=== PATIENT | female | born 1970 | race Caucasian/White ===

== ENCOUNTER 2025-02-19 13:28 | Inpatient (IN) | payer MEDICARE, OTHER ==
[2025-02-19] VITALS (10 sets, daily range): BP systolic 99–115; BP diastolic 37–53; TEMP 99.3; O2SAT 97–100
[~2025-02-19] VITALS: Ht 170.2 cm; Wt 97.1 kg
[2025-02-19] MEDS ORDERED: IOHEXOL-350 100 ML VIAL IV ONE (13:48)
[2025-02-19] MEDS ORDERED: IV NS 0.9% 250 ML IV ONE (13:48)
[2025-02-19 14:14] LABS: ABG BASE EXCESS 2.6 mmol/L (-2.0-3.0); ABG PH 7.283 (7.350-7.450); ABG PO2 76.5 mmHg (83.0-108.0); ABG TOTAL HEMOGLOBIN 12.6 G/dL (12.0-16.0); COHb 0.1 % (0.5-1.5); MetHb 0.3 % (0.0-1.5); O2Hb 92.6 % (94.0-97.0); SITE, ABG RIGHT RADIAL
[2025-02-19 14:15] LABS: BASOPHILS % (AUTO) 0.2 % (0.0-2.0); HEMATOCRIT 42 % (33-45); HEMOGLOBIN 13.2 g/dL (11.5-14.8); LYMPHOCYTES # (AUTO) 1.2 K/uL (0.8-4.8); LYMPHOCYTES % (AUTO) 8.8 % (20.0-44.0); MEAN CORPUSCULAR HEMOGLOBIN 23 PG (26.0-33.0); MEAN CORPUSCULAR HGB CONC 31 g/dl (31.0-36.0); MEAN CORPUSCULAR VOLUME 72 fL (82-100); MONOCYTES # (AUTO) 1.8 K/uL (0.1-1.30); MONOCYTES % (AUTO) 12.6 % (2.0-12.0); NEUTROPHILS # (AUTO) 10.9 K/uL (1.8-8.9); NEUTROPHILS % (AUTO) 78.4 % (43.0-81.0); PLATELET COUNT (AUTO) 233 K/uL (150-450); RED BLOOD CELL COUNT(AUTO) 5.85 MIL/uL (4.0-5.2); RED CELL DISTRIBUTION WIDTH 16.6 % (11.5-15.0); WHITE BLOOD COUNT (AUTO) 13.9 K/uL (4.3-11.0)
[2025-02-19 14:16] LABS: CALCIUM, SERUM 9.3 mg/dL (8.5-10.1); CARBON DIOXIDE 30 mmol/L (21-32); CHLORIDE 103 mmol/L (98-107); CREATININE 0.7 mg/dL (0.6-1.3); GLUCOSE 124 mg/dL (74-106); POTASSIUM 3.8 mmol/L (3.5-5.1); SODIUM SERUM 139 mmol/L (136-145); UREA NITROGEN, BLOOD 7 mg/dL (7-18)
[2025-02-19 14:21] LABS: ALANINE AMINOTRANSFERASE 7 U/L (12-78); ALBUMIN 3.1 g/dL (3.4-5.0); ALKALINE PHOSPHATASE 105 U/L (46-116); ASPARTATE AMINOTRANSFERASE 12 U/L (15-37); BILIRUBIN,DIRECT 0.1 mg/dL (0.0-0.2); BILIRUBIN,TOTAL 0.3 mg/dL (0.2-1.0)
[2025-02-19 14:28] LABS: INR 1.02 (0.91-1.10); PARTIAL THROMBOPLASTIN TIME 29.1 SEC (24.3-34.3); PROTHROMBIN TIME 10.8 SECS (9.2-11.1)
[2025-02-19] MEDS: PIPERACILLIN /TAZOBACTAM 3.375 G in IV D5W 50 ML IV ONE (14:30)
[2025-02-19] MEDS ORDERED: DIVA500T54 PO (15:26)
[2025-02-19] MEDS ORDERED: METF-440 PO (15:26)
[2025-02-19] MEDS ORDERED: CLOZ100T32 PO (15:26)
[2025-02-19] MEDS ORDERED: CLOZ25TA PO (15:26)
[2025-02-19] MEDS ORDERED: IBUP-1957 PO (15:26)
[2025-02-19] MEDS ORDERED: PANT40TA49 PO (15:26)
[2025-02-19] MEDS ORDERED: HALO5TAB8 PO (15:26)
[2025-02-19] MEDS ORDERED: BENZ0.5T43 PO (15:26)
[2025-02-19] MEDS ORDERED: SIMV-46 PO (15:26)
[2025-02-19] MEDS ORDERED: ONDANSETRON HCL/PF 4 MG/2 ML VIAL IVP PRN (15:30)
[2025-02-19] MEDS ORDERED: ACETAMINOPHEN 325 MG TABLET PO PRN (15:30)
[2025-02-19] MEDS ORDERED: PROPOFOL 100 ML ONE (15:43)
[2025-02-19] MEDS ORDERED: FENTANYL CITRAT IV 2,500 MCG in IV NS 0.9% 200 ML IV PRN (16:00)
[2025-02-19] MEDS: [UNRECOGNIZED DRUG - OTHER] IV ONE (16:00)
[2025-02-19] MEDS: [UNRECOGNIZED DRUG - OTHER] IV ONE (16:00)
[2025-02-19] MEDS: PROPOFOL 100 ML IV PRN ×2 (16:45→18:59)
[2025-02-19 17:04] LABS: APPEARANCE,URINE CLEAR (CLEAR); BILIRUBIN,URINE NEGATIVE (NEGATIVE); BLOOD, URINE NEGATIVE Ery/uL (NEGATIVE); COLOR,URINE YELLOW (YELLOW); KETONES,URINE NEGATIVE (NEGATIVE); LEUKOCYTE ESTERASE ,URINE NEGATIVE (NEGATIVE); NITRITE, URINE NEGATIVE (NEGATIVE); PH,URINE 6.5 (5.0-8.0); PROTEIN,URINE TRACE mg/dl (NEGATIVE); UGLUCOSE NEGATIVE (NEGATIVE)
[2025-02-19 17:14] LABS: ADD URINE CULTURE NO; BACTERIA,URINE Few /HPF (None Seen); HYALINE CASTS, URINE Rare /LPF (None Seen); RBC,URINE 0-2 /HPF (0-2); SQUAMOUS EPITHELIAL CELL,UR Few /HPF (None Seen); WBC,URINE 0-2 /HPF (0-3)
[2025-02-19 17:30] LABS: ABG BASE EXCESS 1.9 mmol/L (-2.0-3.0); ABG OXYGEN SATURATION 96.7 % (94.0-98.0); ABG PCO2 35.7 mmHg (32.0-45.0); ABG PH 7.469 (7.350-7.450); ABG PO2 82.3 mmHg (83.0-108.0); ABG TOTAL HEMOGLOBIN 13.1 G/dL (12.0-16.0); COHb 0.3 % (0.5-1.5); MetHb 0.3 % (0.0-1.5); O2Hb 96.1 % (94.0-97.0); PEEP,BG 5 cm H2O; SITE, ABG RIGHT RADIAL; VT, ABG 550 mL
[2025-02-19] MEDS: VANCOMYCIN 1 GM in IV D5W 250 ML IV ONE (17:45)
[2025-02-19] MEDS: ENOXAPARIN SODIUM 40 MG/0.4 ML DISP.SYRIN SQ SCH (18:17)
[2025-02-19] MEDS ORDERED: DEXTROSE 50%-WATER 50 ML DISP.SYRIN IV PRN (19:00)
[2025-02-19] MEDS: IV NS 0.9% 1,000 ML IV PRN (19:44)
[2025-02-19] MEDS: VANCOMYCIN 500 MG in IV D5W 100 ML IV ONE (19:46)
[2025-02-19] MEDS: PIPERACILLIN /TAZOBACTAM 3.375 G in IV D5W 100 ML IV SCH (20:48)
[2025-02-19] MEDS: BLOOD SUGAR DIAGNOSTIC 1 EACH STRIP IN SCH (23:42)
[2025-02-20] VITALS (48 sets, daily range): BP systolic 90–127; BP diastolic 34–96; TEMP 97.7–99.8; O2SAT 94–100
[2025-02-20 04:57] LABS: BASOPHILS # (AUTO) 0.1 K/uL (0.0-0.2); BASOPHILS % (AUTO) 0.4 % (0.0-2.0); EOSINOPHILS % (AUTO) 0.1 % (0.0-6.0); HEMATOCRIT 34 % (33-45); LYMPHOCYTES # (AUTO) 2.2 K/uL (0.8-4.8); LYMPHOCYTES % (AUTO) 14.9 % (20.0-44.0); MEAN CORPUSCULAR HEMOGLOBIN 23 PG (26.0-33.0); MEAN CORPUSCULAR HGB CONC 33 g/dl (31.0-36.0); MEAN CORPUSCULAR VOLUME 70 fL (82-100); MONOCYTES # (AUTO) 1.9 K/uL (0.1-1.30); MONOCYTES % (AUTO) 12.5 % (2.0-12.0); NEUTROPHILS # (AUTO) 10.8 K/uL (1.8-8.9); NEUTROPHILS % (AUTO) 72.1 % (43.0-81.0); PLATELET COUNT (AUTO) 198 K/uL (150-450); RED BLOOD CELL COUNT(AUTO) 4.82 MIL/uL (4.0-5.2); RED CELL DISTRIBUTION WIDTH 15.9 % (11.5-15.0)
[2025-02-20 05:08] LABS: CALCIUM, SERUM 8.4 mg/dL (8.5-10.1); CREATININE 0.6 mg/dL (0.6-1.3); MAGNESIUM 1.6 mg/dL (1.8-2.4); PHOSPHORUS 2.8 mg/dL (2.5-4.9); POTASSIUM 3.2 mmol/L (3.5-5.1)
[2025-02-20] MEDS: VANCOMYCIN 1 GM in IV D5W 250 ML IV SCH (05:24)
[2025-02-20 08:10] LABS: ABG BASE EXCESS 2.3 mmol/L (-2.0-3.0); ABG PCO2 24.3 mmHg (32.0-45.0); ABG PH 7.592 (7.350-7.450); ABG PO2 49.6 mmHg (83.0-108.0); ABG TOTAL HEMOGLOBIN 11.8 G/dL (12.0-16.0); COHb 0.1 % (0.5-1.5); MetHb 0.3 % (0.0-1.5); O2Hb 88.6 % (94.0-97.0); PEEP,BG 5 cm H2O; SITE, ABG RIGHT RADIAL; VT, ABG 550 mL
[2025-02-20] MEDS: Magnesium 1GM/D5W 100ML PREMIX 100 ML IV SCH (08:25)
[2025-02-20] MEDS: POTASSIUM CL. PREMIX PERIPHER. 50 ML IV SCH (08:25)
[2025-02-20] MEDS: ALBUTEROL HALF STRENGTH 1.25 MG/3 ML VIAL.NEB NEB SCH (10:30)
[2025-02-20] MEDS: IPRATROPIUM NEB FS 0.5 MG/2.5 ML AMPUL.NEB NEB SCH (10:30)
[2025-02-20] MEDS: methylPREDNISolone SOD SUCC 125 MG/2ML VIAL IV SCH (10:40)
[2025-02-20] MEDS: GLUCERNA 1.2 1,000 ML BOTTLE NG PRN (12:06)
[2025-02-20] MEDS: INSULIN REGULAR, HUMAN 100 UNIT/ML 3 ML VIAL SQ PRN (17:09)
[2025-02-21] VITALS (48 sets, daily range): BP systolic 88–143; BP diastolic 43–80; TEMP 96–98.1; O2SAT 93–100
[2025-02-21] MEDS: IV NS 0.9% 250 ML IV PRN (03:14)
[2025-02-21 04:02] LABS: HIV-1 p24 ANTIGEN NON REACTIVE (NONREACTIVE); HIV-1/2 ANTIBODY NON REACTIVE (NONREACTIVE)
[2025-02-21 04:27] LABS: HEMATOCRIT 39 % (33-45); HEMOGLOBIN 12.7 g/dL (11.5-14.8); LYMPHOCYTES # (AUTO) 1.3 K/uL (0.8-4.8); LYMPHOCYTES % (AUTO) 9.2 % (20.0-44.0); MEAN CORPUSCULAR HEMOGLOBIN 23 PG (26.0-33.0); MEAN CORPUSCULAR HGB CONC 32 g/dl (31.0-36.0); MEAN CORPUSCULAR VOLUME 72 fL (82-100); MONOCYTES # (AUTO) 0.7 K/uL (0.1-1.30); MONOCYTES % (AUTO) 4.7 % (2.0-12.0); NEUTROPHILS # (AUTO) 11.9 K/uL (1.8-8.9); NEUTROPHILS % (AUTO) 86.1 % (43.0-81.0); PLATELET COUNT (AUTO) 218 K/uL (150-450); RED BLOOD CELL COUNT(AUTO) 5.43 MIL/uL (4.0-5.2); RED CELL DISTRIBUTION WIDTH 16.4 % (11.5-15.0); WHITE BLOOD COUNT (AUTO) 13.9 K/uL (4.3-11.0)
[2025-02-21 04:49] LABS: CALCIUM, SERUM 9.4 mg/dL (8.5-10.1); CREATININE 0.6 mg/dL (0.6-1.3); POTASSIUM 4.5 mmol/L (3.5-5.1)
[2025-02-21 05:13] LABS: HEPATITIS B SURFACE AB (QUAL) Non Reactive (.)
[2025-02-21 11:54] LABS: ABG BASE EXCESS 0.8 mmol/L (-2.0-3.0); ABG OXYGEN SATURATION 91.8 % (94.0-98.0); ABG PCO2 42.8 mmHg (32.0-45.0); ABG PH 7.399 (7.350-7.450); ABG PO2 65.9 mmHg (83.0-108.0); ABG TOTAL HEMOGLOBIN 12.7 G/dL (12.0-16.0); COHb 0.3 % (0.5-1.5); MetHb 0.5 % (0.0-1.5); O2Hb 91.1 % (94.0-97.0); PEEP,BG 8 cm H2O; SITE, ABG RIGHT RADIAL; VT, ABG 500 mL
[2025-02-22] VITALS (47 sets, daily range): BP systolic 110–137; BP diastolic 56–82; TEMP 97.2–98.6; O2SAT 90–100
[2025-02-22 04:25] LABS: BASOPHILS % (AUTO) 0.1 % (0.0-2.0); HEMATOCRIT 35 % (33-45); HEMOGLOBIN 11.2 g/dL (11.5-14.8); LYMPHOCYTES # (AUTO) 1.8 K/uL (0.8-4.8); LYMPHOCYTES % (AUTO) 13.1 % (20.0-44.0); MEAN CORPUSCULAR HEMOGLOBIN 23 PG (26.0-33.0); MEAN CORPUSCULAR HGB CONC 32 g/dl (31.0-36.0); MEAN CORPUSCULAR VOLUME 72 fL (82-100); MONOCYTES # (AUTO) 0.9 K/uL (0.1-1.30); MONOCYTES % (AUTO) 6.5 % (2.0-12.0); NEUTROPHILS # (AUTO) 11.2 K/uL (1.8-8.9); NEUTROPHILS % (AUTO) 80.3 % (43.0-81.0); PLATELET COUNT (AUTO) 223 K/uL (150-450); RED BLOOD CELL COUNT(AUTO) 4.93 MIL/uL (4.0-5.2); RED CELL DISTRIBUTION WIDTH 16.6 % (11.5-15.0); WHITE BLOOD COUNT (AUTO) 13.9 K/uL (4.3-11.0)
[2025-02-22 04:45] LABS: CALCIUM, SERUM 9.4 mg/dL (8.5-10.1); CREATININE 0.5 mg/dL (0.6-1.3); POTASSIUM 4.2 mmol/L (3.5-5.1)
[2025-02-22 07:56] LABS: ABG BASE EXCESS 2.3 mmol/L (-2.0-3.0); ABG OXYGEN SATURATION 91.7 % (94.0-98.0); ABG PCO2 40.6 mmHg (32.0-45.0); ABG PH 7.436 (7.350-7.450); ABG PO2 64.2 mmHg (83.0-108.0); ABG TOTAL HEMOGLOBIN 11.4 G/dL (12.0-16.0); COHb 0.3 % (0.5-1.5); MetHb 0.4 % (0.0-1.5); O2Hb 91.1 % (94.0-97.0); PEEP,BG 8 cm H2O; SITE, ABG RIGHT RADIAL; VT, ABG 500 mL
[2025-02-23] VITALS (43 sets, daily range): BP systolic 113–160; BP diastolic 58–128; TEMP 98.1–98.6; O2SAT 88–98
[2025-02-23 04:41] LABS: CALCIUM, SERUM 9.2 mg/dL (8.5-10.1); CREATININE 0.7 mg/dL (0.6-1.3); POTASSIUM 4.4 mmol/L (3.5-5.1)
[2025-02-23 09:33] LABS: ABG BASE EXCESS 2.8 mmol/L (-2.0-3.0); ABG OXYGEN SATURATION 90.1 % (94.0-98.0); ABG PCO2 39.9 mmHg (32.0-45.0); ABG PH 7.448 (7.350-7.450); ABG PO2 61.1 mmHg (83.0-108.0); ABG TOTAL HEMOGLOBIN 11.6 G/dL (12.0-16.0); COHb 0.3 % (0.5-1.5); MetHb 0.3 % (0.0-1.5); O2Hb 89.6 % (94.0-97.0); PEEP,BG 8 cm H2O; SITE, ABG LEFT RADIAL; VT, ABG 500 mL
[2025-02-23] MEDS: VANCOMYCIN 1 GM in IV D5W 250ml IV SCH (11:58)
[2025-02-24] VITALS (45 sets, daily range): BP systolic 91–159; BP diastolic 51–134; TEMP 98.1–98.6; O2SAT 93–99
[2025-02-24 04:15] LABS: BASOPHILS # (AUTO) 0.1 K/uL (0.0-0.2); BASOPHILS % (AUTO) 0.4 % (0.0-2.0); HEMATOCRIT 35 % (33-45); HEMOGLOBIN 11.2 g/dL (11.5-14.8); LYMPHOCYTES % (AUTO) 20.8 % (20.0-44.0); MEAN CORPUSCULAR HEMOGLOBIN 23 PG (26.0-33.0); MEAN CORPUSCULAR HGB CONC 32 g/dl (31.0-36.0); MEAN CORPUSCULAR VOLUME 72 fL (82-100); MONOCYTES # (AUTO) 1.2 K/uL (0.1-1.30); MONOCYTES % (AUTO) 7.9 % (2.0-12.0); NEUTROPHILS # (AUTO) 10.3 K/uL (1.8-8.9); NEUTROPHILS % (AUTO) 70.9 % (43.0-81.0); PLATELET COUNT (AUTO) 243 K/uL (150-450); RED BLOOD CELL COUNT(AUTO) 4.91 MIL/uL (4.0-5.2); RED CELL DISTRIBUTION WIDTH 16.2 % (11.5-15.0); WHITE BLOOD COUNT (AUTO) 14.6 K/uL (4.3-11.0)
[2025-02-24 04:27] LABS: CALCIUM, SERUM 9.4 mg/dL (8.5-10.1); CREATININE 0.8 mg/dL (0.6-1.3)
[2025-02-24 05:19] LABS: LYMPHOCYTES % (MANUAL) 19 % (16-48); NEUTROPHILS % (MANUAL) 71 (42-76); PLATELET ESTIMATE ADEQUATE
[2025-02-24 05:20] LABS: ANISOCYTOSIS 1+; STOMATOCYTES FEW
[2025-02-24 05:21] LABS: MONOCYTES % (MANUAL) 10 % (0-11.0)
[2025-02-24] MEDS: PROSOURCE / PROSTAT (PYXIS) 30 ML UDC GT SCH (13:00)
[2025-02-25] VITALS (44 sets, daily range): BP systolic 97–147; BP diastolic 60–112; TEMP 98.4–98.8; O2SAT 89–100
[2025-02-25] MEDS: VITAL AF 1.2 1,000 ML BOTTLE GT SCH (02:04)
[2025-02-25 04:38] LABS: BASOPHILS # (AUTO) 0.1 K/uL (0.0-0.2); BASOPHILS % (AUTO) 0.4 % (0.0-2.0); HEMATOCRIT 33 % (33-45); HEMOGLOBIN 10.8 g/dL (11.5-14.8); LYMPHOCYTES # (AUTO) 2.7 K/uL (0.8-4.8); LYMPHOCYTES % (AUTO) 18.7 % (20.0-44.0); MEAN CORPUSCULAR HEMOGLOBIN 23 PG (26.0-33.0); MEAN CORPUSCULAR HGB CONC 33 g/dl (31.0-36.0); MEAN CORPUSCULAR VOLUME 71 fL (82-100); NEUTROPHILS # (AUTO) 10.7 K/uL (1.8-8.9); NEUTROPHILS % (AUTO) 73.9 % (43.0-81.0); PLATELET COUNT (AUTO) 245 K/uL (150-450); RED BLOOD CELL COUNT(AUTO) 4.71 MIL/uL (4.0-5.2); RED CELL DISTRIBUTION WIDTH 16.1 % (11.5-15.0); WHITE BLOOD COUNT (AUTO) 14.4 K/uL (4.3-11.0)
[2025-02-25 04:51] LABS: CALCIUM, SERUM 9.3 mg/dL (8.5-10.1); CREATININE 0.6 mg/dL (0.6-1.3)
[2025-02-25 05:27] LABS: ANISOCYTOSIS 1+; LYMPHOCYTES % (MANUAL) 17 % (16-48); MONOCYTES % (MANUAL) 5 % (0-11.0); NEUTROPHILS % (MANUAL) 78 (42-76); PLATELET ESTIMATE ADEQUATE
[2025-02-25 05:28] LABS: STOMATOCYTES FEW
[2025-02-25] MEDS: FENTANYL CITRAT IV 2,500 MCG in IV NS 0.9% 200 ML IV PRN (16:21)
[2025-02-25] MEDS: MIDAZOLAM HCL 100 MG in IV NS 0.9% 80 ML IV PRN (16:22)
[2025-02-25] MEDS ORDERED: LORAZEPAM INJ 2 MG/ML VIAL IV PRN (20:00)
[2025-02-26] VITALS (36 sets, daily range): BP systolic 108–166; BP diastolic 61–99; TEMP 97.9–98.5; O2SAT 90–100
[2025-02-26 03:34] LABS: BASOPHILS # (AUTO) 0.1 K/uL (0.0-0.2); BASOPHILS % (AUTO) 0.7 % (0.0-2.0); HEMATOCRIT 35 % (33-45); LYMPHOCYTES # (AUTO) 2.7 K/uL (0.8-4.8); LYMPHOCYTES % (AUTO) 16.1 % (20.0-44.0); MEAN CORPUSCULAR HEMOGLOBIN 23 PG (26.0-33.0); MEAN CORPUSCULAR HGB CONC 32 g/dl (31.0-36.0); MEAN CORPUSCULAR VOLUME 71 fL (82-100); MONOCYTES # (AUTO) 1.2 K/uL (0.1-1.30); MONOCYTES % (AUTO) 7.2 % (2.0-12.0); NEUTROPHILS # (AUTO) 12.7 K/uL (1.8-8.9); PLATELET COUNT (AUTO) 268 K/uL (150-450); RED BLOOD CELL COUNT(AUTO) 4.84 MIL/uL (4.0-5.2); WHITE BLOOD COUNT (AUTO) 16.7 K/uL (4.3-11.0)
[2025-02-26 04:07] LABS: CALCIUM, SERUM 9.5 mg/dL (8.5-10.1); CREATININE 0.6 mg/dL (0.6-1.3); POTASSIUM 3.8 mmol/L (3.5-5.1)
[2025-02-26 05:32] LABS: LYMPHOCYTES % (MANUAL) 21 % (16-48); MONOCYTES % (MANUAL) 9 % (0-11.0); NEUTROPHILS % (MANUAL) 70 (42-76); PLATELET ESTIMATE ADEQUATE
[2025-02-26 05:33] LABS: ANISOCYTOSIS 1+; STOMATOCYTES FEW
[2025-02-26] MEDS: BENZTROPINE MESYLATE (1 MG) 1 MG TABLET NG SCH (09:10)
[2025-02-26] MEDS: PANTOPRAZOLE 40 MG/PACK PACK GT SCH (09:10)
[2025-02-26] MEDS: CLOZAPINE 25 MG TABLET NG SCH (09:26)
[2025-02-26] MEDS: HALOPERIDOL 5 MG TABLET NG SCH (09:32)
[2025-02-26 10:45] LABS: ABG BASE EXCESS 2.5 mmol/L (-2.0-3.0); ABG OXYGEN SATURATION 93.5 % (94.0-98.0); ABG PCO2 38.3 mmHg (32.0-45.0); ABG PH 7.457 (7.350-7.450); ABG PO2 71.4 mmHg (83.0-108.0); ABG TOTAL HEMOGLOBIN 11.5 G/dL (12.0-16.0); COHb 0.3 % (0.5-1.5); O2Hb 93.2 % (94.0-97.0); PEEP,BG 5 cm H2O; SITE, ABG LEFT RADIAL
[2025-02-26] MEDS: SIMVASTATIN 20 MG TABLET GT SCH (21:36)
[2025-02-26] MEDS: CLOZAPINE 100 MG TABLET NG SCH (21:39)
[2025-02-26] MEDS: DIVALPROEX SODIUM 125 MG CAP.SPRINK ONE (22:31)
[2025-02-26] MEDS: DIVALPROEX SODIUM 125 MG TABLET.DR PO ONE (22:31)
[2025-02-26] MEDS: DIVALPROEX SODIUM 125 MG CAP.SPRINK GT SCH (22:33)
[2025-02-27] VITALS (35 sets, daily range): BP systolic 102–145; BP diastolic 53–116; TEMP 98–98.5; O2SAT 89–99
[2025-02-27 09:08] LABS: BASOPHILS # (AUTO) 0.2 K/uL (0.0-0.2); BASOPHILS % (AUTO) 1.3 % (0.0-2.0); EOSINOPHILS % (AUTO) 0.2 % (0.0-6.0); HEMATOCRIT 36 % (33-45); HEMOGLOBIN 11.5 g/dL (11.5-14.8); LYMPHOCYTES # (AUTO) 3.7 K/uL (0.8-4.8); MEAN CORPUSCULAR HEMOGLOBIN 23 PG (26.0-33.0); MEAN CORPUSCULAR HGB CONC 32 g/dl (31.0-36.0); MEAN CORPUSCULAR VOLUME 72 fL (82-100); MONOCYTES # (AUTO) 1.1 K/uL (0.1-1.30); MONOCYTES % (AUTO) 6.6 % (2.0-12.0); NEUTROPHILS # (AUTO) 11.7 K/uL (1.8-8.9); NEUTROPHILS % (AUTO) 69.9 % (43.0-81.0); PLATELET COUNT (AUTO) 301 K/uL (150-450); RED BLOOD CELL COUNT(AUTO) 5.06 MIL/uL (4.0-5.2); RED CELL DISTRIBUTION WIDTH 15.9 % (11.5-15.0); WHITE BLOOD COUNT (AUTO) 16.7 K/uL (4.3-11.0)
[2025-02-27 09:12] LABS: CALCIUM, SERUM 9.6 mg/dL (8.5-10.1); CREATININE 0.6 mg/dL (0.6-1.3); POTASSIUM 4.1 mmol/L (3.5-5.1)
[2025-02-27] MEDS: FUROSEMIDE 40 MG/4 ML VIAL IV SCH (10:05)
[2025-02-27] MEDS: POTASSIUM CHLORIDE 20 MEQ TAB.PRT.SR PO SCH (10:05)
[2025-02-27 10:16] LABS: THYROID STIMULATING HORMONE 1.87 uIU/mL (0.358-3.74)
[2025-02-27 12:25] LABS: LYMPHOCYTES % (MANUAL) 36 % (16-48); MONOCYTES % (MANUAL) 4 % (0-11.0); NEUTROPHILS % (MANUAL) 60 (42-76)
[2025-02-27 12:26] LABS: ANISOCYTOSIS 1+; PLATELET ESTIMATE ADEQUATE
[2025-02-28] VITALS (8 sets, daily range): BP systolic 101–146; BP diastolic 62–105; TEMP 97.3–97.9; O2SAT 92–97
[2025-02-28 07:45] LABS: BASOPHILS # (AUTO) 0.1 K/uL (0.0-0.2); BASOPHILS % (AUTO) 0.3 % (0.0-2.0); EOSINOPHILS % (AUTO) 0.2 % (0.0-6.0); HEMATOCRIT 39 % (33-45); HEMOGLOBIN 12.1 g/dL (11.5-14.8); LYMPHOCYTES # (AUTO) 5.9 K/uL (0.8-4.8); LYMPHOCYTES % (AUTO) 32.7 % (20.0-44.0); MEAN CORPUSCULAR HEMOGLOBIN 22 PG (26.0-33.0); MEAN CORPUSCULAR HGB CONC 31 g/dl (31.0-36.0); MEAN CORPUSCULAR VOLUME 72 fL (82-100); MONOCYTES # (AUTO) 1.3 K/uL (0.1-1.30); MONOCYTES % (AUTO) 7.3 % (2.0-12.0); NEUTROPHILS # (AUTO) 10.7 K/uL (1.8-8.9); NEUTROPHILS % (AUTO) 59.5 % (43.0-81.0); PLATELET COUNT (AUTO) 325 K/uL (150-450); RED BLOOD CELL COUNT(AUTO) 5.44 MIL/uL (4.0-5.2); RED CELL DISTRIBUTION WIDTH 15.8 % (11.5-15.0)
[2025-02-28 08:23] LABS: ALBUMIN 2.6 g/dL (3.4-5.0); BILIRUBIN,TOTAL 0.3 mg/dL (0.2-1.0); CALCIUM, SERUM 9.9 mg/dL (8.5-10.1); CREATININE 0.6 mg/dL (0.6-1.3); PHOSPHORUS 3.4 mg/dL (2.5-4.9); POTASSIUM 3.3 mmol/L (3.5-5.1); TOTAL PROTEIN, SERUM 6.1 g/dL (6.4-8.2)
[2025-02-28] MEDS: PANTOPRAZOLE 40 MG TABLET.DR PO SCH (08:53)
[2025-02-28] MEDS: POTASSIUM CHLORIDE 20 MEQ TAB.PRT.SR PO SCH (12:30)
[2025-02-28 13:53] LABS: ANISOCYTOSIS 1+; LYMPHOCYTES % (MANUAL) 42 % (16-48); MONOCYTES % (MANUAL) 2 % (0-11.0); NEUTROPHILS % (MANUAL) 56 (42-76); PLATELET ESTIMATE ADEQUATE; STOMATOCYTES 1+
[2025-02-28] MEDS: ATORVASTATIN 10 MG TABLET PO SCH (21:42)
[2025-03-01] VITALS (8 sets, daily range): BP systolic 108–128; BP diastolic 55–75; TEMP 97.3–98.4; O2SAT 92–98
[2025-03-01 07:59] LABS: CALCIUM, SERUM 10.3 mg/dL (8.5-10.1); CREATININE 0.7 mg/dL (0.6-1.3); POTASSIUM 3.7 mmol/L (3.5-5.1)
[2025-03-01] MEDS: methylPREDNISolone SOD SUCC 125 MG/2ML VIAL IV SCH (08:32)
[2025-03-02] VITALS (7 sets, daily range): BP systolic 108–112; BP diastolic 53–66; TEMP 97.2–98.4; O2SAT 96–97
== END 2025-03-02 20:14 | DRG 207 ==
LOC: ER 13:32 → ICU 17:47 → TELE1 02-27 18:26 → MEDSG1 02-28 09:04
PROVIDERS: ADMIT Nurse Practitioner Acute Care; ATTEND Nurse Practitioner Acute Care
PROC: 5A1955Z Respiratory Ventilation, Greater than 96 Consecutive Hours (ICD-10-PCS; principal; 2025-02-19)
PROC: 0BH17EZ Insertion of Endotracheal Airway into Trachea, Via Natural or Artificial Opening (ICD-10-PCS; 2025-02-19)
PROC: 05HY33Z Insertion of Infusion Device into Upper Vein, Percutaneous Approach (ICD-10-PCS; 2025-02-19)
PROC: 0DH673Z Insertion of Infusion Device into Stomach, Via Natural or Artificial Opening (ICD-10-PCS; 2025-02-19)
DX: J15.69 Pneumonia due to other Gram-negative bacteria (principal); J96.21 Acute and chronic respiratory failure with hypoxia; J96.22 Acute and chronic respiratory failure with hypercapnia; G93.41 Metabolic encephalopathy; E44.1 Mild protein-calorie malnutrition; D68.59 Other primary thrombophilia; H70.009 Acute mastoiditis without complications, unspecified ear; J44.0 Chronic obstructive pulmonary disease with (acute) lower respiratory infection; J44.1 Chronic obstructive pulmonary disease with (acute) exacerbation; J98.11 Atelectasis; I50.32 Chronic diastolic (congestive) heart failure; E66.01 Morbid (severe) obesity due to excess calories; F20.9 Schizophrenia, unspecified; E07.9 Disorder of thyroid, unspecified; K21.9 Gastro-esophageal reflux disease without esophagitis; Z79.84 Long term (current) use of oral hypoglycemic drugs; Z79.899 Other long term (current) drug therapy; Z68.33 Body mass index [BMI] 33.0-33.9, adult; E04.1 Nontoxic single thyroid nodule; H70.93 Unspecified mastoiditis, bilateral; R00.1 Bradycardia, unspecified; E88.09 Other disorders of plasma-protein metabolism, not elsewhere classified; E11.9 Type 2 diabetes mellitus without complications; R29.810 Facial weakness; I11.0 Hypertensive heart disease with heart failure; Z78.1 Physical restraint status
CPT/HCPCS: 31720; 36415; 36600; 70450-TC; 71045-TC; 80048-TC; 80053-TC; 80061-TC; 80076-TC; 80202-TC; 81001; 82140-TC; 82728-TC; 82803-TC; 82962-TC; 83540-TC; 83605-TC; 83735-TC; 83880; 84100-TC; 84439-TC; 84443-TC; 84478-TC; 85025-TC; 85730-TC; 86706; 86803; 87040-TC; 87070-TC; 87081-TC; 87086-TC; 87205-TC; 87340; 87806; 92526; 92611-TC; 93307-TC; 94002-TC; 94003-TC; 94760-TC; 94762-TC; 94799-TC; 97110-TC; 97112-TC; 97116-TC; 97530-TC; 99082-TC; A4223; G0378; J0330; J1650; J1815; J1938; J2250; J2543; J2704; J2919; J3010; J3370; J3475; J3480; J3490; J7030; J7050; J7060; Q9967